=== PATIENT | female | born 1930 | race American Indian/Alaskan Native ===

== ENCOUNTER 2016-08-14 06:09 | Day surgery (SDC) | payer MEDICARE ==
[~2016-08-14 06:09] MED LIST: NACL 0.9% 1000 ML 1,000 ML IV SCH; PEPCID PO NR
[2016-08-14] MEDS ORDERED: NACL BACTERIOSTATIC INFILTRATI ONE (06:43)
[2016-08-14] MEDS ORDERED: DIPRIVAN 10 MG/ML IV ONE (07:02)
[2016-08-14] MEDS ORDERED: SUBLIMAZE ONE (07:02)
--- NOTE | 2016-08-14 07:33 | Anesthesia Consultation ---
Anesthesia Consult and Med Hx Date of service: 08/14/16 - Airway ROM Head & Neck: Adequate Mental/Hyoid Distance: Adequate Mallampati Class: Class II Intubation Access Assessment: Probably Good - Pulmonary Exam CTA: Yes - Cardiac Exam Cardiac Exam: RRR - Pre-Operative Health Status ASA Pre-Surgery Classification: ASA2 Proposed Anesthetic Plan: General - Pulmonary Hx Smoking: No Hx Sleep Apnea: No - Gastrointestinal Hx Gastroesophageal Reflux Disease: No - Endocrine Hx Non-Insulin Dependent Diabetes: Yes - Other Systems Hx Cancer: No
--- NOTE | 2016-08-14 07:38 | Anesthesia Day of Surgery ---
Anesthesia Day of Surgery - Day of Surgery Patient Examined: Yes Patient H&P Reviewed: Yes Patient is NPO: Yes Beta Blockers: No Cardiac Clearance: Yes
[2016-08-14] MEDS ORDERED: MARCAINE 0.25% INFILTRATI ONE ×2 (07:40→08:25)
[2016-08-14] MEDS ORDERED: XYLOCAINE 1% 20 mL ONE (07:41)
[2016-08-14] MEDS ORDERED: XYLOCAINE MPF 2% ONE (07:53)
[2016-08-14] MEDS ORDERED: ANCEF/STERILE WATER 2 GM/20 ML IV NR (08:00)
[2016-08-14] MEDS ORDERED: DECADRON ONE (08:05)
[2016-08-14] MEDS ORDERED: ZOFRAN ONE (08:18)
[2016-08-14] MEDS ORDERED: NACL 0.9% IR ONE (08:25)
--- NOTE | 2016-08-14 09:22 | Short Stay Summary ---
Short Stay Documentation Date of service: 08/14/16 - History H&P: obtained from office - Allergies and Medications Current Medications: Allergies No Known Allergies Allergy (Unverified 08/06/16 11:56) Home Medications Medication Instructions Recorded Confirmed Last Taken Type Escitalopram Oxalate [Lexapro] 20 mg PO QDAY 08/07/16 08/14/16 08/13/16 History Pravastatin Sodium [Pravastatin] 10 mg PO QDAY 08/07/16 08/14/16 08/13/16 18:30 History metFORMIN [Glucophage] 500 mg PO BID 08/07/16 08/14/16 08/13/16 18:30 History HYDROcodone/APAP 5-325 [Mangum 1 each PO Q6HR PRN #30 tablet 08/14/16 Unknown Rx 5/325] Active Medications Cefazolin Sodium (Ancef/Sterile Water 2 Gm/20 Ml) 2 gm IV PREOP NR Stop: 08/14/16 23:59 Famotidine (Pepcid) 20 mg PO PREOP NR Stop: 08/14/16 23:59 Last Admin: 08/14/16 07:03 Dose: 20 mg Sodium Chloride (Nacl 0.9% 1000 Ml) 1,000 mls @ 75 mls/hr IV DIRECT CHANO Last Admin: 08/14/16 06:55 Dose: 75 mls/hr - Brief post op/procedure progress note Date of procedure: 08/14/16 Pre-op diagnosis: Left upper inner breast lipoma Post-op diagnosis: same Procedure: Left breast excisional biopsy of lipoma Anesthesia: GETA Findings: Left breast lipoma at the 11:00 position 12 cm from the nipple Surgeon: MALOU ELLISON Estimated blood loss: minimal Pathology: list (left breast lipoma) Specimen disposition: to lab Condition: stable - Disposition Condition at discharge: Good Disposition: DISCHARGED TO HOME OR SELFCARE Short Stay Discharge Plan Activity: other (no heavy lifting) Diet: regular Wound: other (keep incision clean and dry and may shower in 24 hours; no baths, pools or lakes; do not rub or scrub incision) Follow up with: JAYLAN DELACRUZ MD [Primary Care Provider] - 7 Days MALOU ELLISON MD [Staff Physician] - 7 Days Prescriptions: HYDROcodone/APAP 5-325 [Mangum 5/325] 1 each PO Q6HR PRN #30 tablet PRN Reason: Pain
--- NOTE | 2016-08-14 09:30 | Operative Report ---
Operative Report Operative Report: Date of procedure: 08/14/2018 Pre-operative diagnosis: Left upper inner quadrant breast lipoma Post-operative diagnosis: Same Procedure name(s): Left breast excisional biopsy of breast lipoma Surgeon: Mayuri Nguyễn MD Anesthesia: General Findings: Known left breast lipoma at the 11:00 position 12 cm from the nipple Drains: None Complications: None Disposition:PACU in good condition Indications for Operative Procedure: This is a 85-year-old -[place] lady with known left breast lipoma at the 11 o'clock position 12 cm from nipple with increase in size. Recommendations were for excisional biopsy. Patient wishes to proceed with the above procedure. Procedure in Detail: The patient was taken to the operating room and was laid supine. Gen. anesthesia was administered. The left breast was prepped and draped in the normal sterile operative fashion. The lipoma was identified. Skin incision was made with a 15 blade knife with dissection taken down to the subcutaneous tissue. First began with the raising of the superior flap with identification of the lipoma and the lipoms was then dissected free with the aid of the Bovie cautery and Metzenbaum scissors. Specimen sent to pathology. Hemostasis was obtained with Bovie cautery. The cavity was irrigated and suctioned. The subcutaneous tissues were approximated and closed with interrupted 3-0 Vicryl and skin closed using a running 4-0 Monocryl and skin affix. She tolerated surgery very well and was awakened from anesthesia without any complications and transported to PACU in good condition.
[2016-08-14] MEDS ORDERED: XYLOCAINE 1% 20 mL INFILTRATI ONE (09:35)
[2016-08-14] MEDS ORDERED: ZOFRAN IV PRN (10:15)
[2016-08-14] MEDS ORDERED: NORCO 5/325 PO PRN (10:30)
[2016-08-14 10:37] VITALS: BP 132/80
== END 2016-08-14 11:05 | disposition home or self-care (01) ==
LOC: OR 06:09
PROVIDERS: ATTEND Surgery
DX: D17.1 Benign lipomatous neoplasm of skin and subcutaneous tissue of trunk (principal); E11.9 Type 2 diabetes mellitus without complications
CPT/HCPCS: 19120; 82962; 88304; J0690; J1100; J2405; J2704; J3010; J7030